=== PATIENT | male | born 1940 | race Caucasian/White ===

== ENCOUNTER → 2021-03-10 | Outpatient (CLI) | payer OTHER | LOC: KOH-I 10:31 | DX: I12.9 Hypertensive chronic kidney disease with stage 1 through stage 4 chronic kidney disease, or unspecified chronic kidney disease (principal); N18.30 Chronic kidney disease, stage 3 unspecified; N28.1 Cyst of kidney, acquired; N28.89 Other specified disorders of kidney and ureter | CPT/HCPCS: 76775 ==